=== PATIENT | female | born 1990 ===

== ENCOUNTER 2023-08-19 15:52 | Emergency (ER) | payer OTHER ==
[~2023-08-19] VITALS: Ht 162.6 cm; Wt 59.1 kg
[2023-08-19 15:55] VITALS: TEMP 98.6
[2023-08-19 18:00] VITALS: BP 128/61; PULSE 86; RESP 16
[2023-08-19] MEDS ORDERED: PERTUSS(ACELL),DIPH,TET VAC/PF 0.5 ML SYRINGE IM. ONE (18:00)
== END 2023-08-19 19:00 | disposition home or self-care (01) ==
LOC: EMS 16:20
DX: S90.851A Superficial foreign body, right foot, initial encounter (principal); W22.8XXA Striking against or struck by other objects, initial encounter; Y93.89 Activity, other specified; Y92.89 Other specified places as the place of occurrence of the external cause; Y99.8 Other external cause status
CPT/HCPCS: 90471; 90715; 99284